=== PATIENT | male | born 1980 | race Caucasian/White ===

== ENCOUNTER → 2018-08-18 | Outpatient (REF) | LOC: EH 13:57 ==

== ENCOUNTER → 2020-01-30 | Outpatient (CLI) | payer BC, OTHER ==
[~2020-01-30] VITALS: Ht 160 cm; Wt 83.9 kg
[2020-01-30 11:19] LABS: BASOPHIL % 0.8 % (0-2); PLATELET COUNT 212 x10^3mcL (130-400); RED CELL DISTRIBUTION WIDTH 12.6 % (11.5-14.5)
[2020-01-30 11:34] LABS: ALBUMIN 3.9 g/dL (3.4-5.0); ALKALINE PHOSPHATASE 72 U/L (46-116); ALT/SGPT 50 U/L (16-63); AST/SGOT 23 U/L (15-37); BILIRUBIN TOTAL 0.6 mg/dL (0.20-1.00); CALCIUM 8.8 mg/dL (8.5-10.1); CARBON DIOXIDE 37.6 mmol/L (21-32); CHLORIDE SERUM 102 mmol/L (98-107); CREATININE SERUM 1.1 mg/dL (0.7-1.3); GFR1 > 60 mL/min; GLUCOSE SERUM 94 mg/dL (74-106); POTASSIUM SERUM 4.3 mmol/L (3.5-5.1); SODIUM SERUM 139 mmol/L (136-145); TOTAL PROTEIN, SERUM 7.2 g/dL (6.4-8.2)
--- NOTE | 2020-01-30 14:02 | NUR ---
COPIES OF EKG AND LAB RESULT WERE FAXED TO DR. VELASQUEZ'S OFFICE AND SENT TO OR FOR ANESTHESIOLOGIST TO REVIEW. DR. VELASQUEZ WAS AWARE WITH NO FURTHER ORDER NEEDED.
--- NOTE | 2020-01-31 11:32 | NUR ---
LABS AND EKG SENT TO ANESTHESIA FOR REVIEW. PATIENT NEEDS CARDIAC CLEARANCE PER DR. PONCE FOR SURGERY ON 02-04-20. DR. Reina VELASQUEZ'S OFFICE CALLED AND NOTIFIED. EKG SENT TO OFFICE REQUESTED.
--- NOTE | 2020-01-31 12:21 | NUR ---
DR. Reina VELASQUEZ CALLED BACK , SURGERY CANCELED PER. DR. Reina VELASQUEZ. 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
== END | disposition home or self-care (01) ==
LOC: LB 12:00 → EDSTATUS 02-04 07:30 → DS 02-04 07:30 → OR 02-04 07:30
PROVIDERS: ATTEND Urology
DX: N47.1 Phimosis (principal)
CPT/HCPCS: U0003-CS